=== PATIENT | female | born 1940 | race Caucasian/White ===

== ENCOUNTER 2018-12-07 11:02 | Emergency (ER) | payer MEDICARE, OTHER ==
[~2018-12-07] VITALS: Ht 157.5 cm; Wt 61.2 kg
[~2018-12-07 11:02] MED LIST: ASPI-482 PO; BETA1TAB10 PO; LECI400C PO; LISI-338 PO; MULT1TAB52 PO; VITA1TAB3 PO
[2018-12-07 11:15] VITALS: BP 205/86
--- NOTE | 2018-12-07 12:09 | PHYS DOC ---
Past Medical History Past Medical History: Hypertension Past Surgical History: Hysterectomy, Other Additional Past Surgical Histo: CYSTS REMOVED FROM BREAST, HERNIA REPAIR X2. Alcohol Use: None Drug Use: None Adult General Chief Complaint Chief Complaint: MECHANICAL FALL HPI HPI Patient is a 77 year old female who presents with on Thursday she was outside and slipped and fell on the ice hitting her left side of her head on a brick side of the house. Patient denies LOC, nausea, vomiting, visual changes, headache, any pain at all. Review of Systems Review of Systems Constitutional: Denies fever or chills [] Eyes: Denies change in visual acuity, redness, or eye pain [] HENT: Denies nasal congestion or sore throat [] Respiratory: Denies cough or shortness of breath [] Cardiovascular: No additional information not addressed in HPI [] GI: Denies abdominal pain, nausea, vomiting, bloody stools or diarrhea [] : Denies dysuria or hematuria [] Musculoskeletal: Fall. Denies back pain or joint pain [] Integument: Bruising to face. Denies rash or skin lesions [] Neurologic: Denies headache, focal weakness or sensory changes [] All other systems were reviewed and found to be within normal limits, except as documented in this note. Allergies Allergies Allergies Coded Allergies Type Severity Reaction Last Updated Verified No Known Drug Allergies 01/22/16 No Physical Exam Physical Exam Constitutional: Well developed, well nourished, no acute distress, non-toxic appearance. [] HENT: Normocephalic, atraumatic, bilateral external ears normal, oropharynx moist, no oral exudates, nose normal. [] Eyes: PERRLA, EOMI, conjunctiva normal, no discharge. [] Neck: Normal range of motion, no tenderness, supple, no stridor. [] Cardiovascular:Heart rate regular rhythm, no murmur [] Lungs & Thorax: Bilateral breath sounds clear to auscultation [] Abdomen: Bowel sounds normal, soft, no tenderness, no masses, no pulsatile masses. [] Skin: Left upper facial bruising and around left eye. Warm, dry, no erythema, no rash. [] Back: No tenderness, no CVA tenderness. [] Extremities: No tenderness, no cyanosis, no clubbing, ROM intact, no edema. [] Neurologic: Alert and oriented X 3, normal motor function, normal sensory function, no focal deficits noted. [] Psychologic: Affect normal, judgement normal, mood normal. [] Current Patient Data Vital Signs Vital Signs Date Time Temp Pulse Resp B/P (MAP) Pulse Ox O2 Delivery O2 Flow Rate FiO2 12/07/18 11:15 98.3 91 18 205/86 (125) 97 Room Air 98.3 EKG EKG [] Radiology/Procedures Radiology/Procedures [] Impressions: [facility] [address] [place] [address] IMAGING REPORT Signed PATIENT: DIANA GONZALEZ ACCOUNT: [id number] : 1940 LOCATION: ER AGE: 77 SEX: F EXAM STATUS: REG ER ORD. PHYSICIAN: CHRISTIANA NIX APRN REASON: fall PROCEDURE: CT CERVICAL SPINE WO CONTRAST Exam performed: CT scan of the head, maxillofacial and cervical spine without contrast. Date of Service: 12/07/2018 Comparison: None available Clinical History: Patient fell today Technique: Helical acquisitions are obtained from the foramen magnum to the vertex without intravenous administration of contrast. In addition helical acquisitions are obtained through the maxillofacial structures and cervical spine. Sagittal and coronal reformatted images are obtained and reviewed. CT scan head findings: Prominence of cortical sulci and ventricular system is noted consistent with age-related atrophy. Normal spaulding-white differentiation is maintained. There is no extra axial fluid collection, intraparenchymal hemorrhage or mass lesion. The visualized orbits and the mastoid air cells are clear. There is a mucous retention cyst in the left maxillary sinus There is soft tissue swelling in the left frontal region, underlying calvarium is intact. Impression: 1. No acute intracranial process detected. Age-related atrophy is seen.. End Impression. CT maxillofacial findings: There is normal aeration of both frontal, ethmoid, right maxillary and sphenoid sinuses. Mucous retention cyst is seen in the left maxillary sinus. No air-fluid level, mucoperiosteal thickening or mucus retention cyst is identified. The bony orbital margins and the intraocular contents are bilaterally symmetric and unremarkable. Both ostiomeatal complexes are preserved. Nasal bones and zygomatic arches are preserved.No abnormal fluid collections or hematoma formation seen. The visualized portion of the brain is normal. Impression: 1. Chronic left maxillary sinus disease. No acute abnormality identified. CT cervical spine findings: Normal sagittal alignment is preserved. Generalized osteopenia. The vertebral body heights are maintained. There is narrowing of C2/3, C3/4 and C6/7 disc spaces with mild osteophytic spurring. There is no liam or retrolisthesis. Multilevel bilateral apophyseal joint hypertrophic changes are seen bilaterally. No prevertebral soft tissue swelling is identified. There are no acute fractures. No definite lymphadenopathy or masses are seen within the neck. The visualized thyroid and salivary glands appears preserved. Impression: 1. No acute abnormality seen in the CT scan cervical spine. 2. 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 Automated exposure control 2. Adjustment of the mA and/or kV according to patient size 3. Use of iterative reconstruction technique Electronically signed by: Melia Duron MD (12/07/2018 12:39 PM) [place] [id number] DICTATED and SIGNED BY: MELIA DURON MD DATE: 12/07/18 8470 Course & Med Decision Making Course & Med Decision Making Patient is a 77 year old female who presents with on Thursday she was outside and slipped and fell on the ice hitting her left side of her head on a brick side of the house. Patient denies LOC, nausea, vomiting, visual changes, headache, any pain at all. Patient has a quarter-sized raised lump to her left forehead that is bruised and bruising around the left eye only. No villalobos signs. There is no tenderness to palpation except for over the lump on the left forehead. Patient denies being on blood thinners. Patient is ambulatory with a steady gait. Patient continues to deny LOC, nausea, vomiting, visual changes, headache, pain at any kind. Patient walks with a steady gait. She is no focal weaknesses. She has no neck pain and there is no cervical pain tenderness or spinal tenderness in general. Patient states she did not hurt any where else on her body. PERRLA. Neurologically intact. Denies numbness or tingling. She has full range of motion of her neck. She has no intraocular motion tenderness. CT scan show no acute findings. Patient to follow-up with her primary care provider if needed. Patient should return if she has dizziness, loss of consciousness, nausea, vomiting, headache. Dragon Disclaimer Dragon Disclaimer This electronic medical record was generated, in whole or in part, using a voice recognition dictation system. Departure Departure Impression: Primary Impression: Fall Additional Impression: Head injury Disposition: HOME, SELF-CARE Condition: STABLE Referrals: UNKNOWN PCP NAME (PCP) Patient Instructions: Fall Prevention and Home Safety, Head Injury, Adult Additional Instructions: Follow-up her primary care provider. Return for dizziness, visual changes, vomiting, intractable headache. Problem Qualifiers Primary Impression: Fall Encounter type: initial encounter Qualified Codes: W19.XXXA - Unspecified fall, initial encounter Additional Impression: Head injury Encounter type: initial encounter Qualified Codes: S09.90XA - Unspecified injury of head, initial encounter CHRISTIANA NIX APRN Dec 07, 2018 12:09
--- NOTE | 2018-12-07 12:42 | RAD ---
Exam performed: CT scan of the head, maxillofacial and cervical spine without contrast. Date of Service: 12/07/2018 Comparison: None available Clinical History: Patient fell today Technique: Helical acquisitions are obtained from the foramen magnum to the vertex without intravenous administration of contrast. In addition helical acquisitions are obtained through the maxillofacial structures and cervical spine. Sagittal and coronal reformatted images are obtained and reviewed. CT scan head findings: Prominence of cortical sulci and ventricular system is noted consistent with age-related atrophy. Normal spaulding-white differentiation is maintained. There is no extra axial fluid collection, intraparenchymal hemorrhage or mass lesion. The visualized orbits and the mastoid air cells are clear. There is a mucous retention cyst in the left maxillary sinus There is soft tissue swelling in the left frontal region, underlying calvarium is intact. Impression: 1. No acute intracranial process detected. Age-related atrophy is seen.. End Impression. CT maxillofacial findings: There is normal aeration of both frontal, ethmoid, right maxillary and sphenoid sinuses. Mucous retention cyst is seen in the left maxillary sinus. No air-fluid level, mucoperiosteal thickening or mucus retention cyst is identified. The bony orbital margins and the intraocular contents are bilaterally symmetric and unremarkable. Both ostiomeatal complexes are preserved. Nasal bones and zygomatic arches are preserved.No abnormal fluid collections or hematoma formation seen. The visualized portion of the brain is normal. Impression: 1. Chronic left maxillary sinus disease. No acute abnormality identified. CT cervical spine findings: Normal sagittal alignment is preserved. Generalized osteopenia. The vertebral body heights are maintained. There is narrowing of C2/3, C3/4 and C6/7 disc spaces with mild osteophytic spurring. There is no liam or retrolisthesis. Multilevel bilateral apophyseal joint hypertrophic changes are seen bilaterally. No prevertebral soft tissue swelling is identified. There are no acute fractures. No definite lymphadenopathy or masses are seen within the neck. The visualized thyroid and salivary glands appears preserved. Impression: 1. No acute abnormality seen in the CT scan cervical spine. 2. Spondylotic changes and multilevel disc degenerative changes are present [facility] Compliance Statement: One or more of the following individualized dose reduction techniques were utilized for this examination: 1. Automated exposure control 2. Adjustment of the mA and/or kV according to patient size 3. Use of iterative reconstruction technique Electronically signed by: Melia Duron MD (12/07/2018 12:39 PM) [id number]
== END 2018-12-07 13:23 | disposition home or self-care (01) ==
LOC: ER 11:02
DX: S09.90XA Unspecified injury of head, initial encounter (principal); I10 Essential (primary) hypertension; W00.2XXA Other fall from one level to another due to ice and snow, initial encounter; Y93.89 Activity, other specified; Y92.89 Other specified places as the place of occurrence of the external cause; Y99.8 Other external cause status
CPT/HCPCS: 70450; 70486; 72125; 99284-25